=== PATIENT | male | born 1995 | race African-American/Black ===

== ENCOUNTER 2017-01-19 09:04 | Emergency (ER) | payer OTHER ==
[2017-01-19 09:13] VITALS: BP 155/84
--- NOTE | 2017-01-19 09:18 | ED Physician Documentation ---
PD HPI MALE - Stated complaint Stated Complaint: MALE - Chief complaint Chief Complaint: General - History obtained from History obtained from: Patient - History of Present Illness Timing - onset: Today Pain level max: 0 Pain level now: 0 - Additional information Additional information: Patient is a 21-year-old male who presents to the emergency department with no symptoms requesting an STD check. He states he has not had any exposures, but he and his girlfriend want to stop using condoms for sexual activity and want to be checked before doing so. Review of Systems Constitutional: denies: Fever Respiratory: denies: Cough GI: denies: Abdominal Pain, Nausea, Vomiting, Diarrhea : reports: Other (no rash). denies: Dysuria, Frequency, Hesitancy, Discharge , Testicular pain, Testicular mass Skin: denies: Rash, Lesions PD PAST MEDICAL HISTORY - Past Medical History Past Medical History: No - Past Surgical History Past Surgical History: No - Allergies Allergies/Adverse Reactions: Allergies Allergy/AdvReac Type Severity Reaction Status Date / Time No Known Drug Allergies Allergy Verified 01/19/17 09:12 - Social History Does the pt smoke?: No Smoking Status: Never smoker - Immunizations Immunizations are current?: Yes PD ED PE NORMAL - Vitals Vital signs reviewed: Yes - General General: Alert and oriented X 3, No acute distress, Well developed/nourished - HEENT HEENT: Moist mucous membranes - Neck Neck: Supple, no meningeal sign - Cardiac Cardiac: RRR, Strong equal pulses - Respiratory Respiratory: No respiratory distress, Clear bilaterally - Abdomen Abdomen: Soft, Non tender, Non distended - Male Male : Pt declined - Derm Derm: Warm and dry - Neuro Neuro: Alert and oriented X 3 - Psych Psych: Normal mood, Normal affect Results - Vitals Vitals: Vital Signs - 24 hr 01/19/17 09:07 Temperature 36.8 C Heart Rate 83 Respiratory 16 Rate Blood Pressure 155/84 H O2 Saturation 98 Oxygen O2 Source Room air PD MEDICAL DECISION MAKING - ED course Complexity details: considered differential, d/w patient ED course: 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 Urine was sent for gonorrhea and chlamydia. Recommend that he follow-[facility] testing including HIV. Patient counseled regarding signs and symptoms for which I believe and urgent re -evaluation would be necessary. Patient with good understanding of and agreement to plan and is comfortable going home at this time This document was made in part using voice recognition software. While efforts are made to proofread this document, sound alike and grammatical errors may occur. Departure - Departure Disposition: 01 Home, Self Care Clinical Impression: Screen for STD (sexually transmitted disease) Condition: Good Instructions: STD Follow-Up: your,doctor for further testing [Other] Comments: The results of the gonorrhea and chlamydia testing will be back in 3-5 days and you will be called if they are positive. Your blood pressure was elevated today on check in to the emergency department. This does not mean that you have hypertension, it is a common phenomenon to check into the emergency department and have elevated blood pressure. I recommend that you see your primary care physician within the week to have it rechecked when you're feeling better.
== END 2017-01-19 09:42 | disposition home or self-care (01) ==
LOC: ED 09:04
DX: Z11.3 Encounter for screening for infections with a predominantly sexual mode of transmission (principal); R03.0 Elevated blood-pressure reading, without diagnosis of hypertension
CPT/HCPCS: 87491; 87591; 99282; 99283